=== PATIENT | male | born 1965 | race Caucasian/White ===

== ENCOUNTER → 2017-05-02 | Outpatient (CLI) | payer OTHER ==
[~2017-05-02] MED LIST: CLARITIN10 MG PO; DAYPRO600 M1 PO; MEDROL DOSEPAK4 MG PO; SEPTRA DS 800 M1 TAB PO
[2017-05-02 17:11] LABS: BILIRUBIN NEGATIVE (NEGATIVE); BLOOD NEGATIVE (NEGATIVE); CLARITY CLEAR (CLEAR); COLOR YELLOW (YELLOW); GLUCOSE NEGATIVE (NEGATIVE); KETONE TRACE (NEGATIVE); LEUKO ESTERASE NEGATIVE (NEGATIVE); NITRITE NEGATIVE (NEGATIVE); PH 5.5 (5.0-9.0); PROTEIN TRACE (NEGATIVE); SPECIFIC GRAVITY >= 1.030 (1.005-1.030); UROBILINOGEN 0.2 E.U./dl (0.2-1.0)
[2017-05-02 17:36] LABS: WBC 0-2 wbc/hpf (0-5)
== END | disposition home or self-care (01) ==
LOC: LAB 16:55
PROVIDERS: Family Medicine
DX: R31.29 Other microscopic hematuria (principal)

== ENCOUNTER 2021-05-13 20:33 | Emergency (ER) | payer BC ==
[~2021-05-13] VITALS: Ht 187.9 cm; Wt 99.8 kg
== END 2021-05-13 22:18 | disposition home or self-care (01) ==
LOC: ED 20:33
DX: S61.211A Laceration without foreign body of left index finger without damage to nail, initial encounter (principal); F17.200 Nicotine dependence, unspecified, uncomplicated; W45.8XXA Other foreign body or object entering through skin, initial encounter; Y93.89 Activity, other specified; Y92.098 Other place in other non-institutional residence as the place of occurrence of the external cause; Y99.9 Unspecified external cause status